=== PATIENT | male | born 1975 ===

== ENCOUNTER 2019-11-11 22:26 | Emergency (ER) | payer BC ==
[~2019-11-11] VITALS: Ht 183 cm; Wt 91.0 kg
[~2019-11-11 22:26] MED LIST: OXYC1TAB87 PO; SULF1TAB35 PO
[2019-11-11] MEDS ORDERED: NS IV 1000 ML 1,000 ML IV ONE (22:44)
[2019-11-11] MEDS ORDERED: ACETAMINOPHEN 500 MG TAB (TYLENOL) PO PRN (22:45)
--- NOTE | 2019-11-11 22:47 | NUR ---
covid swab sent
[2019-11-11 23:00] LABS: BASOPHILS % (AUTO) 0 % (0-10); EOSINOPHILS % (AUTO) 0 % (0-10); HEMATOCRIT 44 % (40-54); HEMOGLOBIN 14.9 G/DL (13.3-17.7); LYMPHOCYTES # (AUTO) 2.1 X 10^3 (1.0-4.0); LYMPHOCYTES % (AUTO) 43 % (12-44); MEAN CORPUSCULAR HEMOGLOBIN 29 PG (25-34); MEAN CORPUSCULAR HGB CONC 34 G/DL (32-36); MEAN CORPUSCULAR VOLUME 84 FL (80-99); MEAN PLATELET VOLUME 10.3 FL (7.4-10.4); MONOCYTES # (AUTO) 0.4 X 10^3 (0.0-1.0); MONOCYTES % (AUTO) 7 % (0-12); NEUTROPHILS # (AUTO) 2.5 X 10^3 (1.8-7.8); NEUTROPHILS % (AUTO) 50 % (42-75); PLATELET COUNT 137 10^3/uL (130-400); RED CELL DISTRIBUTION WIDTH 12.9 % (10.0-14.5)
[2019-11-11 23:13] LABS: CHLORIDE 101 MMOL/L (98-107); POTASSIUM 3.9 MMOL/L (3.6-5.0); SODIUM 134 MMOL/L (135-145)
[2019-11-11 23:14] LABS: CALCIUM 8.5 MG/DL (8.5-10.1)
[2019-11-11 23:15] LABS: GLUCOSE 124 MG/DL (70-105); TOTAL PROTEIN 7.7 GM/DL (6.4-8.2)
[2019-11-11 23:16] LABS: CARBON DIOXIDE 23 MMOL/L (21-32); FIBRIN DEGRADATION PRODUCTS 0.37 UG/ML (0.00-0.49); PROTHROMBIN TIME PATIENT 13.5 SEC (12.2-14.7)
[2019-11-11 23:17] LABS: BILIRUBIN,TOTAL 0.5 MG/DL (0.1-1.0)
[2019-11-11 23:19] LABS: ALKALINE PHOSPHATASE 54 U/L (40-136); CREATININE SERUM 1.01 MG/DL (0.60-1.30); ERYTHROCYTE SEDIMENTATION RATE 14 MM/HR (0-15); GFR ESTIMATED > 60
[2019-11-11 23:20] LABS: BUN/CREATININE RATIO 6
[2019-11-11 23:22] LABS: ALANINE AMINOTRANSFERASE 43 U/L (0-55)
--- NOTE | 2019-11-11 23:56 | ED Cough/URI ---
General Chief Complaint: Fever-Adult/Adol Stated Complaint: ACHES/FEVER/COUGH Nursing Triage Note: headache, bodyache, decreased appetite, cough x8 days. Sepsis Screen: No Definite Risk Source: patient Exam Limitations: no limitations History of Present Illness Date Seen by Provider: Nov 11, 2019 Time Seen by Provider: 22:40 Initial Comments Here with fevers, chills, body aches and decreased appetite for the last week. Had a little worse tonight so he presented. Denies contact with COVID positive patient's although does have family members that are known COVID positive. He states he has not been around them. He does have all the symptoms of COVID-19. Not currently short of breath and denies chest pain. Has had diarrhea early on but that is resolved. Complains of headache currently. Timing/Duration: week, getting worse Severity/Quality: mild, dry cough Prior Episodes/Possible Cause: no prior episodes Modifying Factors: Improves With Rest Associated Symptoms: cough, fever/chills, headache, muscle aches, nasal congestion, sore throat Allergies and Home Medications Allergies Coded Allergies: No Known Drug Allergies (Unverified , 02/06/16) Home Medications No Active Prescriptions or Reported Meds Patient Home Medication List Home Medication List Reviewed: Yes Review of Systems Review of Systems Constitutional: see HPI, chills, fever EENTM: see HPI Respiratory: cough; No short of breath, No wheezing Cardiovascular: No chest pain, No edema Gastrointestinal: No abdominal pain; diarrhea; No nausea, No vomiting Genitourinary: no symptoms reported Musculoskeletal: see HPI, muscle pain, muscle weakness (Heart) Skin: no symptoms reported Psychiatric/Neurological: No Symptoms Reported All Other Systems Reviewed Negative Unless Noted: Yes Past [id number] Hx Past Med/Social Hx: Reviewed Nursing Past Med/Soc Hx Patient Social History Alcohol Use: Denies Use Recreational Drug Use: No Smoking Status: Never a Smoker 2nd Hand Smoke Exposure: No Recent Foreign Travel: No Contact w/Someone Who Travel: No Recent Infectious Disease Expo: No Recent Hopitalizations: No Physical Abuse: No Sexual Abuse: No Mistreated: No Fear: No Immunizations Up To Date Tetanus Booster (TDap): Unknown Seasonal Allergies Seasonal Allergies: No Past Medical History Surgeries: No Respiratory: No Cardiac: No Neurological: No Genitourinary: No Gastrointestinal: No Musculoskeletal: No Endocrine: No HEENT: No Cancer: No Psychosocial: No Integumentary: No Blood Disorders: No Family Medical History Reviewed Nursing Family Hx No Pertinent Family Hx Physical Exam Vital Signs - First Documented 11/11/19 22:39 Temp 37.8 Pulse 103 Resp 20 B/P (MAP) 130/87 (101) Pulse Ox 95 O2 Delivery Room Air Capillary Refill : Less Than 3 Seconds Height: 5'11" Weight: 200lbs. oz. [id number]; 27.00 BMI Method:Stated General Appearance: WD/WN, no apparent distress HEENT: PERRL/EOMI, pharynx normal Neck: full range of motion, supple Respiratory: lungs clear, normal breath sounds Cardiovascular: no murmur, tachycardia Gastrointestinal: non tender, soft Extremities: non-tender, normal inspection Neurologic/Psychiatric: alert, oriented x 3 Skin: normal color, warm/dry Focused Exam Lactate Level 11/11/19 22:47: Lactic Acid Level 1.17 Lactic Acid Level Laboratory Tests Test 11/11/19 22:47 Lactic Acid Level 1.17 MMOL/L (0.50-2.00) Procedures/Interventions Suture Size: 3-0 Progress/Results/Core Measures Suspected Sepsis Recent Fever Within 48 Hours: No Infection Criteria Present: Suspected New Infection New/Unexplained Altered Menta: No Sepsis Screen: No Definite Risk SIRS Temperature: Pulse: 103 Respiratory Rate: 20 Laboratory Tests 11/11/19 22:47: White Blood Count 5.0 Blood Pressure 130 /87 Mean: 101 11/11/19 22:47: Lactic Acid Level 1.17 Laboratory Tests 11/11/19 22:47: Creatinine 1.01, INR Comment 1.0, Platelet Count 137, Total Bilirubin 0.5 Results/Orders Lab Results Laboratory Tests Test 11/11/19 22:47 Range/Units White Blood Count 5.0 4.3-11.0 10^3/uL Red Blood Count 5.17 4.35-5.85 10^6/uL Hemoglobin 14.9 13.3-17.7 G/DL Hematocrit 44 40-54 % Mean Corpuscular Volume 84 80-99 FL Mean Corpuscular Hemoglobin 29 25-34 PG Mean Corpuscular Hemoglobin Concent 34 32-36 G/DL Red Cell Distribution Width 12.9 10.0-14.5 % Platelet Count 137 130-400 10^3/uL Mean Platelet Volume 10.3 7.4-10.4 FL Neutrophils (%) (Auto) 50 42-75 % Lymphocytes (%) (Auto) 43 12-44 % Monocytes (%) (Auto) 7 0-12 % Eosinophils (%) (Auto) 0 0-10 % Basophils (%) (Auto) 0 0-10 % Neutrophils # (Auto) 2.5 1.8-7.8 X 10^3 Lymphocytes # (Auto) 2.1 1.0-4.0 X 10^3 Monocytes # (Auto) 0.4 0.0-1.0 X 10^3 Eosinophils # (Auto) 0.0 0.0-0.3 10^3/uL Basophils # (Auto) 0.0 0.0-0.1 10^3/uL Erythrocyte Sedimentation Rate 14 0-15 MM/HR Prothrombin Time 13.5 12.2-14.7 SEC INR Comment 1.0 0.8-1.4 Activated Partial Thromboplast Time 36 H 24-35 SEC D-Dimer 0.37 0.00-0.49 UG/ML Sodium Level 134 L 135-145 MMOL/L Potassium Level 3.9 3.6-5.0 MMOL/L Chloride Level 101 98-107 MMOL/L Carbon Dioxide Level 23 21-32 MMOL/L Anion Gap 10 5-14 MMOL/L Blood Urea Nitrogen 6 L 7-18 MG/DL Creatinine 1.01 0.60-1.30 MG/DL Estimat Glomerular Filtration Rate > 60 BUN/Creatinine Ratio 6 Glucose Level 124 H 70-105 MG/DL Lactic Acid Level 1.17 0.50-2.00 MMOL/L Calcium Level 8.5 8.5-10.1 MG/DL Corrected Calcium 8.5 8.5-10.1 MG/DL Total Bilirubin 0.5 0.1-1.0 MG/DL Aspartate Amino Transf (AST/SGOT) 46 H 5-34 U/L Alanine Aminotransferase (ALT/SGPT) 43 0-55 U/L Alkaline Phosphatase 54 40-136 U/L Lactate Dehydrogenase 323 H 125-220 U/L C-Reactive Protein High Sensitivity 2.07 H 0.00-0.50 MG/DL Total Protein 7.7 6.4-8.2 GM/DL Albumin 4.0 3.2-4.5 GM/DL Procalcitonin 0.10 H <0.10 NG/ML My Orders Orders - ESAU CAREY MD Cbc With Automated Diff (11/11/19 22:44) Comprehensive Metabolic Panel (11/11/19 22:44) Blood Culture (11/11/19 22:44) Sputum Culture (11/11/19 22:44) Urinalysis (11/11/19 22:44) Urine Culture (11/11/19 22:44) Protime With Inr (11/11/19 22:44) Partial Thromboplastin Time (11/11/19 22:44) Chest 1 View, Ap/Pa Only (11/11/19 22:44) Acetaminophen Tablet (Tylenol Tablet) (11/11/19 22:45) Ed Iv/Invasive Line Start (11/11/19 22:44) Vital Signs Adult Sepsis Patie Q15M (11/11/19 22:44) O2 (11/11/19 22:44) Remove Rings In Anticipation O (11/11/19 22:44) Lactic Acid Analyzer (11/11/19 22:44) Fibrin Degradation Products (11/11/19 22:44) Procalcitonin (Pct) (11/11/19 22:44) Hs C Reactive Protein (11/11/19 22:44) Erythrocyte Sedimentation Rate (11/11/19 22:44) LDH (11/11/19 22:44) Coronavirus Sars-Cov-2 So 2018 (11/11/19 22:44) Ns Iv 1000 Ml (Sodium Chloride 0.9%) (11/11/19 22:44) Medications Given in ED Current Medications Medications Dose Ordered Sig/Lila Route Start Time Stop Time Status Last Admin Dose Admin Acetaminophen 1,000 mg ONCE PRN PO 11/11/19 22:45 11/11/19 22:56 DC 11/11/19 22:55 1,000 MG Sodium Chloride 1,000 ml @ 0 mls/hr Q0M ONCE IV 11/11/19 22:44 11/11/19 22:48 DC 11/11/19 22:55 0 MLS/HR Vital Signs/I&O 11/11/19 11/11/19 22:39 22:55 Temp 37.8 37.8 Pulse 103 Resp 20 B/P (MAP) 130/87 (101) Pulse Ox 95 O2 Delivery Room Air Capillary Refill : Less Than 3 Seconds Blood Pressure Mean: 101 Progress Note : Progress Note Seen and evaluated. IV, labs, chest x-ray, blood cultures, lactic acid, normal saline 1 L bolus, Tylenol 1 g by mouth and COVID testing initiated. Monitor patient. 2350: Patient doing better with much reduced headache. Chest x-ray at this point looks okay. I think is safe for home with O2 sats in the mid upper 90s. Patient agrees. He will be quarantined until test results are noted. Patient verbalize understanding. Discharged home with return precautions. Patient verbalize understanding of instructions and agreement with plan. Diagnostic Imaging Diagonstic Imaging: Xray Plain Films/CT/US/NM/MRI: chest Comments No acute findings. Reviewed: Reviewed by Me Departure Impression Primary Impression: Viral upper respiratory infection Additional Impression: COVID-19 evaluation Disposition: HOME, SELF-CARE Condition: Improved Departure-Patient Inst. Decision time for Depature: 23:57 Referrals: NO,LOCAL PHYSICIAN (PCP/Family) Primary Care Physician Patient Instructions: Coronavirus Disease 2019 (COVID-19) (DC), Viral Upper Respiratory Infection, Adult (DC) Add. Discharge Instructions: All discharge instructions reviewed with patient and/or family. Voiced understanding. Drink plenty of fluids and get plenty of rest. You will need to remain on quarantine until test results are noted. If they are negative, you will need to be isolated for 3 days after symptoms resolve. If they are positive, the health department will call you and direct quarantine timeframe. You may take ibuprofen 600 mg every 8 hours as needed for fever or pain. You may take Tylenol/acetaminophen 1000 mg every 8 hours as needed for fever.. Return for worse pain, fever, vomiting, weakness, breathing problems or other concerns as needed. Scripts No Active Prescriptions or Reported Meds Work/School Note: Work Release Form Date Seen in the Emergency Department: Nov 11, 2019 Return to Work: Nov 16, 2019 Restrictions: No Restrictions Other Restrictions Listed Below: No return until fever free for 3 days without meds or per health Department ESAU CAREY MD Nov 11, 2019 23:56
[2019-11-12 00:01] VITALS: BP 116/73
--- NOTE | 2019-11-12 06:01 | Diagnostic Imaging Report ---
INDICATION: Covid Emergency Room patient. Febrile. FINDINGS: Portable chest shows lungs to be well-aerated and clear. Heart is not enlarged. There is no pulmonary edema or hilar adenopathy. No pneumothorax or pleural effusion. No bony abnormalities. IMPRESSION: Normal portable chest. Dictated by: Dictated on workstation # [id number]
== END 2019-11-12 00:07 | disposition home or self-care (01) ==
LOC: EDUNIT# 22:26 → ER 22:28
DX: U07.1 COVID-19 (principal); J06.9 Acute upper respiratory infection, unspecified
CPT/HCPCS: 71045; 80053; 83605; 83615; 84145; 85025; 85379; 85610; 85652; 85730; 86141; 87040; 99284; U0002; 36415; 87635